=== PATIENT | female | born 1985 | race Caucasian/White ===

== ENCOUNTER 2020-04-24 14:10 | Emergency (ER) | payer MEDICAID ==
[~2020-04-24] VITALS: Ht 154.9 cm; Wt 98.0 kg
[~2020-04-24 14:10] MED LIST: NOCURR
[2020-04-24 15:57] LABS: BASOPHILS % (AUTO) 0.2 % (0.0-2.0); EOSINOPHILS % (AUTO) 0.1 % (1.0-6.0); HEMATOCRIT 40.3 % (36-46); HEMOGLOBIN 13.4 g/dL (12.0-16.0); LYMPHOCYTES # (AUTO) 1.6 K/uL (1.0-4.8); LYMPHOCYTES % (AUTO) 21.6 % (22.0-44.0); MEAN CORPUSCULAR HEMOGLOBIN 29.4 pg (26.0-34.0); MEAN CORPUSCULAR HGB CONC 33.3 G/dL (31.0-37.0); MEAN CORPUSCULAR VOLUME 88 fL (80-100); MONOCYTES # (AUTO) 0.7 K/uL (0.1-1.0); MONOCYTES % (AUTO) 10.1 % (2.0-9.0); NEUTROPHILS # (AUTO) 4.9 K/uL (1.8-7.7); PLATELET COUNT (AUTO) 199 K/uL (150-450); RED BLOOD CELL COUNT(AUTO) 4.57 MIL/uL (4.00-5.20)
[2020-04-24 16:06] LABS: ANION GAP 11 mmol/L (8-16); CALCIUM, TOTAL 8.4 mg/dL (8.8-10.5); CARBON DIOXIDE 25 mmol/L (22-29); CHLORIDE 100 mmol/L (98-107); CREATININE 0.84 mg/dL (0.60-1.30); GLOMERULAR FILTR. RATE CALC > 60 mL/min (>60); GLUCOSE,RANDOM 121 mg/dL (70-110); POTASSIUM 4.1 mmol/L (3.5-5.1); SODIUM SERUM 136 mmol/L (136-145); UREA NITROGEN, BLOOD 8 mg/dL (7-18)
[2020-04-24 16:11] LABS: ALANINE AMINOTRANSFERASE 43 U/L (12-78); ALBUMIN 3.3 g/dL (3.4-5.0); ALKALINE PHOSPHATASE 83 U/L (46-116); ASPARTATE AMINOTRANSFERASE 27 U/L (15-37); BILIRUBIN,TOTAL 0.3 mg/dL (0.1-1.0); TOTAL PROTEIN, SERUM 8.4 g/dL (6.4-8.2)
[2020-04-24 16:14] LABS: LACTIC ACID 1.1 mmol/L (0.4-2.0)
[2020-04-24 17:15] VITALS: BP 125/71
[2020-04-24 17:52] LABS: APPEARANCE,URINE CLOUDY (CLEAR); BILIRUBIN,URINE NEGATIVE (NEGATIVE); GLUCOSE, URINE (UA) 100 mg/dL (NEGATIVE); KETONES,URINE 15 mg/dL (NEGATIVE); LEUKOCYTE ESTERASE ,URINE NEGATIVE (NEGATIVE); NITRATE,URINE NEGATIVE (NEGATIVE); OCCULT BLOOD,URINE NEGATIVE (NEGATIVE); PROTEIN,URINE POS 1+ (NEGATIVE)
[2020-04-24] MEDS ORDERED: AZITHROMYCIN 500 MG TABLET PO ONE (18:15)
[2020-04-24] MEDS ORDERED: ACETAMINOPHEN 500 MG TABLET PO ONE (18:15)
[2020-04-24 18:17] LABS: BACTERIA,URINE None Seen /HPF (None Seen); RBC,URINE None Seen /HPF (0-2); SQUAMOUS EPITHELIAL CELL,UR Moderate /LPF (None Seen); WBC,URINE 0-2 /HPF (0-5)
== END 2020-04-24 18:54 | disposition home or self-care (01) ==
LOC: EMS 14:11
DX: J40 Bronchitis, not specified as acute or chronic (principal); B34.9 Viral infection, unspecified; Z20.828 Contact with and (suspected) exposure to other viral communicable diseases
CPT/HCPCS: 36415; 71045; 80053; 81001; 83605; 85025; 87040; 99284; U0003

== ENCOUNTER 2021-01-09 15:16 | Emergency (ER) | payer MEDICAID ==
[~2021-01-09] VITALS: Ht 154.9 cm; Wt 90.9 kg
[~2021-01-09 15:16] MED LIST changes: +AMOX1TAB16 PO; -NOCURR
[2021-01-09 15:18] VITALS: BP 129/69
[2021-01-09] MEDS ORDERED: CEPHALEXIN MONOHYDRATE 500 MG CAPSULE PO ONE (16:45)
[2021-01-09] MEDS ORDERED: BACITRACIN 0.9 GM PACKET OINTMENT TP ONE (16:45)
[2021-01-09] MEDS ORDERED: IBUPROFEN 800 MG TABLET PO ONE (16:45)
== END 2021-01-09 17:03 | disposition home or self-care (01) ==
LOC: EMS 15:16
DX: L60.0 Ingrowing nail (principal)
CPT/HCPCS: 99283; 99284

== ENCOUNTER 2022-03-02 11:30 | Emergency (ER) | payer MEDICAID ==
[~2022-03-02] VITALS: Ht 152.4 cm; Wt 93.2 kg
[2022-03-02 11:37] VITALS: BP 135/80
[2022-03-02] MEDS ORDERED: METF-1211 PO (11:37)
[2022-03-02] MEDS ORDERED: PERTUSS(ACELL),DIPH,TET VAC/PF 0.5 ML SYRINGE IM. ONE (13:00)
[2022-03-02] MEDS ORDERED: CEPH-558 PO (13:00)
[2022-03-02] MEDS ORDERED: ATOR10TA69 PO (13:01)
== END 2022-03-02 13:31 | disposition home or self-care (01) ==
LOC: EMS 11:30
DX: S61.031A Puncture wound without foreign body of right thumb without damage to nail, initial encounter (principal); L03.011 Cellulitis of right finger; E11.9 Type 2 diabetes mellitus without complications; Z91.013 Allergy to seafood; Z79.84 Long term (current) use of oral hypoglycemic drugs; W45.8XXA Other foreign body or object entering through skin, initial encounter; Y93.89 Activity, other specified; Y92.89 Other specified places as the place of occurrence of the external cause; Y99.8 Other external cause status
CPT/HCPCS: 82962; 90471; 90715; 99283

== ENCOUNTER 2022-07-08 02:01 | Emergency (ER) | payer MEDICAID ==
[~2022-07-08] VITALS: Ht 152.4 cm; Wt 90.9 kg
[~2022-07-08 02:01] MED LIST changes: -AMOX1TAB16 PO; +ATOR10TA69 PO; +CEPH-558 PO; +METF-1211 PO
[2022-07-08 02:56] LABS: COVID AG,FIA SOURCE NASAL SWAB
[2022-07-08 03:26] LABS: INFLUENZA TYPE A NEGATIVE FOR TYPE A (NEGATIVE); INFLUENZA TYPE B NEGATIVE FOR TYPE B (NEGATIVE)
[2022-07-08 04:10] VITALS: BP 124/79
== END 2022-07-08 04:16 | disposition home or self-care (01) ==
LOC: EMS 02:03
DX: J98.01 Acute bronchospasm (principal); F41.9 Anxiety disorder, unspecified; E11.9 Type 2 diabetes mellitus without complications; Z20.822 Contact with and (suspected) exposure to COVID-19; Z91.013 Allergy to seafood
CPT/HCPCS: 71045; 82962; 87804; 93005; 99285

== ENCOUNTER 2022-11-02 09:09 | Emergency (ER) | payer MEDICAID ==
[~2022-11-02] VITALS: Ht 154.9 cm; Wt 90.9 kg
[~2022-11-02 09:09] MED LIST changes: -CEPH-558 PO
[2022-11-02 09:37] LABS: COVID AG,FIA SOURCE NASAL SWAB
[2022-11-02] MEDS ORDERED: ACETAMINOPHEN 325 MG TABLET PO ONE (09:45)
[2022-11-02] MEDS ORDERED: IBUPROFEN 600 MG TABLET PO ONE (09:45)
[2022-11-02 10:21] VITALS: BP 119/63
[2022-11-02 10:26] LABS: INFLUENZA TYPE A NEGATIVE FOR TYPE A (NEGATIVE); INFLUENZA TYPE B NEGATIVE FOR TYPE B (NEGATIVE)
[2022-11-02] MEDS ORDERED: BENZ-70 PO (10:29)
== END 2022-11-02 10:43 | disposition home or self-care (01) ==
LOC: EMS 09:09
DX: J06.9 Acute upper respiratory infection, unspecified (principal); R05.9 Cough, unspecified; E11.9 Type 2 diabetes mellitus without complications; Z20.822 Contact with and (suspected) exposure to COVID-19
CPT/HCPCS: 71046; 87804; 99284

== ENCOUNTER 2022-11-29 02:38 | Emergency (ER) | payer MEDICAID ==
[~2022-11-29] VITALS: Ht 154.9 cm; Wt 93.0 kg
[~2022-11-29 02:38] MED LIST changes: +BENZ-70 PO
[2022-11-29 03:31] LABS: BASOPHILS % (AUTO) 0.7 % (0.0-2.0); EOSINOPHILS % (AUTO) 2.2 % (1.0-6.0); HEMATOCRIT 39.6 % (36-46); HEMOGLOBIN 12.7 g/dL (12.0-16.0); LYMPHOCYTES # (AUTO) 4.1 K/uL (1.0-4.8); LYMPHOCYTES % (AUTO) 38.3 % (22.0-44.0); MEAN CORPUSCULAR HEMOGLOBIN 28.7 pg (26.0-34.0); MEAN CORPUSCULAR HGB CONC 32.1 G/dL (31.0-37.0); MEAN CORPUSCULAR VOLUME 89 fL (80-100); MONOCYTES # (AUTO) 0.4 K/uL (0.1-1.0); MONOCYTES % (AUTO) 4.1 % (2.0-9.0); NEUTROPHILS # (AUTO) 5.8 K/uL (1.8-7.7); NEUTROPHILS % (AUTO) 54.7 % (40.0-70.0); PLATELET COUNT (AUTO) 295 K/uL (150-450); RED BLOOD CELL COUNT(AUTO) 4.43 MIL/uL (4.00-5.20); RED CELL DISTRIBUTION WIDTH 13.8 % (11.5-14.5)
[2022-11-29 03:34] LABS: ANION GAP 9 mmol/L (8-16); CALCIUM, TOTAL 8.8 mg/dL (8.8-10.5); CARBON DIOXIDE 25 mmol/L (22-29); CHLORIDE 101 mmol/L (98-107); CREATININE 0.76 mg/dL (0.60-1.30); GLOMERULAR FILTR. RATE CALC > 60 mL/min (>60); GLUCOSE,RANDOM 140 mg/dL (70-110); POTASSIUM 3.8 mmol/L (3.5-5.1); SODIUM SERUM 135 mmol/L (136-145); UREA NITROGEN, BLOOD 16 mg/dL (7-18)
[2022-11-29 03:45] LABS: ALANINE AMINOTRANSFERASE 23 U/L (12-78); ALBUMIN 3.7 g/dL (3.4-5.0); ALKALINE PHOSPHATASE 93 U/L (46-116); ASPARTATE AMINOTRANSFERASE 25 U/L (15-37); BILIRUBIN,TOTAL 0.3 mg/dL (0.1-1.0); HCG,QUANTITATIVE < 1 mIU/mL (0-6); TOTAL PROTEIN, SERUM 8.8 g/dL (6.4-8.2)
[2022-11-29 03:47] LABS: APPEARANCE,URINE HAZY (CLEAR); BILIRUBIN,URINE NEGATIVE (NEGATIVE); GLUCOSE, URINE (UA) NEGATIVE (NEGATIVE); LEUKOCYTE ESTERASE ,URINE NEGATIVE (NEGATIVE); NITRATE,URINE NEGATIVE (NEGATIVE); OCCULT BLOOD,URINE LARGE (NEGATIVE); PH,URINE 5.5 (5.0-8.0); PROTEIN,URINE 30-70 mg/dL (NEGATIVE); SPECIFIC GRAVITIY, URINE 1.035 (1.003-1.030); UROBILINOGEN,URINE <=1.0 mg/dL (<=1.0)
[2022-11-29 03:48] LABS: RBC,URINE 51-100 /HPF (0-2)
[2022-11-29 03:49] LABS: BACTERIA,URINE Few /HPF (None Seen); SQUAMOUS EPITHELIAL CELL,UR Few /LPF (None Seen)
[2022-11-29 08:47] VITALS: BP 120/60
== END 2022-11-29 09:44 | disposition home or self-care (01) ==
LOC: EMS 02:39
DX: N93.8 Other specified abnormal uterine and vaginal bleeding (principal); E11.9 Type 2 diabetes mellitus without complications; Z91.013 Allergy to seafood
CPT/HCPCS: 76830; 76856; 80053; 81001; 82962; 84702; 85025; 99284

== ENCOUNTER 2024-05-21 12:40 | Emergency (ER) | payer MEDICAID, OTHER ==
[~2024-05-21] VITALS: Ht 152.4 cm; Wt 90.9 kg
[~2024-05-21 12:40] MED LIST changes: +BENZ-227 PO; -BENZ-70 PO
[2024-05-21 12:46] VITALS: BP 117/67; PULSE 66; RESP 16; TEMP 98.4
[2024-05-21 13:11] LABS: GLUCOMETER DEV NAME(LOC) ER.7; GLUCOSE,POINT OF CARE 201 MG/DL (70-110)
[2024-05-21] MEDS: IBUPROFEN 600 MG TABLET PO ONE (13:29)
[2024-05-21] MEDS ORDERED: IBUP-1492 PO (13:53)
== END 2024-05-21 14:49 | disposition home or self-care (01) ==
LOC: EMS 12:43
DX: S93.401A Sprain of unspecified ligament of right ankle, initial encounter (principal); E11.9 Type 2 diabetes mellitus without complications; Z91.013 Allergy to seafood; X58.XXXA Exposure to other specified factors, initial encounter; Y93.89 Activity, other specified; Y92.89 Other specified places as the place of occurrence of the external cause; Y99.8 Other external cause status
CPT/HCPCS: 82962; 99283

== ENCOUNTER → 2024-11-06 | Emergency (ER) | payer OTHER ==
[~2024-11-06] VITALS: Ht 149.9 cm; Wt 90.9 kg
[~2024-11-06] MED LIST changes: +EPIN0.3P3 IM; +IBUP-1492 PO; +PRED-554 PO
[2024-11-06 03:07] VITALS: TEMP 98.4
[2024-11-06 03:36] LABS: GLUCOMETER DEV NAME(LOC) ER.7; GLUCOSE,POINT OF CARE 160 MG/DL (70-110)
[2024-11-06] MEDS: MethylPREDNISolone SOD SUCC 125 MG/2 ML VIAL IVP ONE (03:43)
[2024-11-06] MEDS: SODIUM CHLORIDE 0.9% 1,000 ML IV ONE (03:43)
[2024-11-06] MEDS: DiphenhydrAMINE HCL 50 MG/ML VIAL IVP ONE (03:43)
[2024-11-06] MEDS: EPINEPHrine 1:1,000 [1 MG/ML] VIAL IM ONE (03:44)
[2024-11-06 06:08] VITALS: BP 119/82; PULSE 77; RESP 15; O2SAT 100
== END | disposition still patient (30) ==
LOC: EMS 03:04
DX: T78.40XA Allergy, unspecified, initial encounter (principal); E11.9 Type 2 diabetes mellitus without complications; Z79.899 Other long term (current) drug therapy; X58.XXXA Exposure to other specified factors, initial encounter
CPT/HCPCS: 99291; 96374; 96361; 96375; 82962; 96372; J1200; J0171; J2919; J7030

== ENCOUNTER 2025-06-25 19:21 | Emergency (ER) | payer OTHER ==
[~2025-06-25] VITALS: Ht 149.9 cm; Wt 90.9 kg
[2025-06-25 20:04] VITALS: BP 107/77; PULSE 60; RESP 18; TEMP 98.2; O2SAT 100
[2025-06-25 20:33] LABS: APPEARANCE,URINE CLEAR (CLEAR); GLUCOSE, URINE (UA) >=1000 mg/dL (NEGATIVE); LEUKOCYTE ESTERASE ,URINE NEGATIVE (NEGATIVE); NITRATE,URINE NEGATIVE (NEGATIVE); OCCULT BLOOD,URINE NEGATIVE (NEGATIVE); SPECIFIC GRAVITIY, URINE 1.035 (1.003-1.030)
[2025-06-25 20:59] LABS: SQUAMOUS EPITHELIAL CELL,UR Rare /LPF (None Seen)
[2025-06-25] MEDS ORDERED: IBUP-1492 PO (22:10)
[2025-06-25] MEDS ORDERED: METH-659 PO (22:10)
[2025-06-25] MEDS ORDERED: CEPH-558 PO (22:10)
[2025-06-25] MEDS: IBUPROFEN 600 MG TABLET PO ONE (22:24)
[2025-06-25] MEDS: CEPHALEXIN MONOHYDRATE 500 MG CAPSULE PO ONE (22:24)
== END 2025-06-25 22:37 | disposition home or self-care (01) ==
LOC: EMS 19:21
DX: S29.012A Strain of muscle and tendon of back wall of thorax, initial encounter (principal); N39.0 Urinary tract infection, site not specified; E11.9 Type 2 diabetes mellitus without complications; Z79.52 Long term (current) use of systemic steroids; Z79.899 Other long term (current) drug therapy; X58.XXXA Exposure to other specified factors, initial encounter; Y93.89 Activity, other specified; Y92.89 Other specified places as the place of occurrence of the external cause; Y99.8 Other external cause status
CPT/HCPCS: 81001; 87086; 99284; Z7502; Z7610